=== PATIENT | female | born 1960 | race Caucasian/White ===

== ENCOUNTER 2016-04-07 13:56 | Emergency (ER) | payer OTHER ==
[2016-04-07 15:01] LABS: BASO % 0.6 % (0.0-1.0); EOS # 0.1 K/mm3 (0.0-0.50); EOS % 1.1 % (0.0-3.0); LARGE UNSTAINED CELL # 0.2 K/mm3 (0.0-0.4); LARGE UNSTAINED CELL % 1.7 % (0.0-4.0); LYMPH # 2.3 K/mm3 (1.5-4.5); LYMPH % 26.8 % (24.0-44.0); MEAN CORPUSCULAR HEMOGLOBIN 30.9 pg (27.0-33.0); MEAN CORPUSCULAR HGB CONC 33.5 g/dl (32.0-36.5); MEAN CORPUSCULAR VOLUME 92.3 fl (80.0-96.0); MONO # 0.4 K/mm3 (0.0-0.8); MONO % 4.3 % (0.0-5.0); NEUTROPHILS # 5.5 K/mm3 (1.8-7.7); NEUTROPHILS % 65.4 % (36.0-66.0); PLATELET COUNT, AUTOMATED 293 k/mm3 (150-450); RED CELL DISTRIBUTION WIDTH 12.4 % (11.5-14.5); WHITE BLOOD COUNT 8.5 K/mm3 (4.0-10.0)
--- NOTE | 2016-04-07 15:06 | REP ---
Chest one-view HISTORY: Shortness of breath Comparison: None The lungs are clear. The heart is normal in size. The pulmonary vasculature is normal in appearance. Impression: No acute disease. Signed by Gatito Diaz MD 04/07/2016 02:58 P
[2016-04-07 15:15] LABS: ANION GAP 10 MEQ/L (8-16); BLOOD UREA NITROGEN 18 MG/DL (7-18); CALCIUM LEVEL 9.1 MG/DL (8.5-10.1); CARBON DIOXIDE LEVEL 26 MEQ/L (21-32); CHLORIDE LEVEL 106 MEQ/L (98-107); GLOMERULAR FILTRATION RATE > 60.0 (>51); GLUCOSE, FASTING 121 MG/DL (70-105); POTASSIUM SERUM 4.1 MEQ/L (3.5-5.1); SODIUM LEVEL 142 MEQ/L (136-145)
[2016-04-07] MEDS ORDERED: ONDANSETRON 4MG/2ML VIAL (J2405) As Ordered ONE (16:21)
[2016-04-07] MEDS ORDERED: KETOROLAC 30 MG/ML VIAL (J1885) As Ordered ONE (16:21)
--- NOTE | 2016-04-07 18:01 | EDDOCDS ---
Physician Documentation [facility] Name: Charito Carnes Age: 56 yrs Sex: Female : 1960 Arrival Date: 04/07/2016 Time: 13:56 Bed 9 Private MD: Ilya DIAZ Disposition: 04/07/16 16:57 Discharged to Home/Self Care. Impression: Dizziness and giddiness. - Condition is Stable. - Discharge Instructions: Near-Syncope, [id number]. - Medication Reconciliation, Local Pharmacy Hours form. - Follow up: [facility] [place]; When: Call to arrange an appointment; Reason: Continuance of care. - Problem is new. - Symptoms have improved. Historical: - Allergies: no known allergies; - Home Meds: 1. none - PMHx: none; - PSHx: Hysterectomy; Appendectomy; - Social history: Smoking status: Patient states was never smoker of tobacco. Patient/guardian denies using alcohol, street drugs, No barriers to communication noted, The patient speaks fluent Tristanian, Speaks appropriately for age. - Family history: Not pertinent. - : The pt / caregiver states he / she is not on anticoagulants. Home medication list is obtained from the patient. - Exposure Risk Screening:: None identified. Vital Signs: 04/07 13:47 Pulse 78 MON; Pulse Ox 89% ; ja5 13:48 BP 121 / 56 (auto/); ja5 13:58 BP 153 / 96; Pulse 84; Resp 18 S; Temp 97.5(O); Pulse Ox 100% on R/A; Weight 70.76 kg / gr2 156 lbs (R); Height 5 ft. 2 in. (157.48 cm) (R); Pain 3/10; 14:02 Pulse 84 MON; Pulse Ox 90% ; ja5 14:03 BP 144 / 65 (auto/); ja5 14:17 Pulse 80 MON; Pulse Ox 89% ; ja5 14:18 BP 131 / 60 (auto/); ja5 14:18 BP 177 / 121 (auto/); ja5 14:18 Pulse 82 MON; Pulse Ox 99% ; ja5 14:23 BP 161 / 94 (auto/); ja5 14:23 Pulse 76 MON; Pulse Ox 96% ; ja5 14:29 Pulse 76 MON; Pulse Ox 98% ; ja5 14:30 BP 156 / 97 (auto/); ja5 14:32 Pulse 86 MON; Pulse Ox 91% ; ja5 14:33 BP 127 / 60 (auto/); ja5 14:47 Pulse 80 MON; Pulse Ox 89% ; ja5 14:48 BP 133 / 62 (auto/); ja5 14:59 Pulse 72 MON; Pulse Ox 96% ; ja5 15:00 BP 185 / 105 (auto/); ja5 15:02 Pulse 80 MON; Pulse Ox 89% ; ja5 15:03 BP 134 / 63 (auto/); ja5 15:15 BP 185 / 99 (auto/); ja5 15:15 Pulse 74 MON; Pulse Ox 98% ; ja5 15:17 Pulse 80 MON; Pulse Ox 89% ; ja5 15:18 BP 133 / 63 (auto/); ja5 15:30 BP 159 / 83 (auto/); ja5 15:30 Pulse 74 MON; Pulse Ox 96% ; ja5 15:44 Pulse 76 MON; Pulse Ox 98% ; ja5 15:45 BP 189 / 119 (auto/); ja5 16:00 BP 162 / 92 (auto/); ja5 16:00 Pulse 74 MON; Pulse Ox 96% ; ja5 16:14 Pulse 70 MON; Pulse Ox 97% ; ja5 16:14 BP 160 / 89; Pulse 69; Resp 16; Temp 96.4(O); Pulse Ox 98% on R/A; Pain 0/10; ja5 16:15 BP 163 / 95 (auto/); ja5 16:25 BP 164 / 98 LA Supine; Pulse 70; jc4 16:25 BP 172 / 101 LA Sitting; Pulse 73; jc4 16:27 BP 161 / 99 Standing; Pulse 73; jc4 16:28 BP 164 / 98 Supine; Pulse 70; ja5 16:28 BP 172 / 104 Sitting; Pulse 73; ja5 16:28 BP 161 / 99 Standing; Pulse 73; ja5 16:29 Pulse 70 MON; Pulse Ox 98% ; ja5 16:30 BP 155 / 108 (auto/); ja5 16:44 Pulse 70 MON; Pulse Ox 97% ; ja5 16:45 BP 174 / 111 (auto/); ja5 16:59 Pulse 68 MON; Pulse Ox 94% ; ja5 17:00 BP 187 / 121 (auto/); ja5 17:12 BP 122 / 82 RA (man/); jc4 17:46 Pulse 70 MON; Pulse Ox 97% ; ja5 17:47 BP 160 / 89 (auto/); ja5 13:58 Body Mass Index 28.53 (70.76 kg, 157.48 cm) gr2 MDM: 14:02 ECG WITH READING ER PHYS+CARDIAG ordered. EDMS 14:32 Ethnic Origins Teacher/Pulse Ox/q 15 min VS ordered. fg 14:32 IV Saline Lock ordered. fg 14:32 Rhythm Strip to chart ordered. fg 14:33 -Blood Culture Ordered. EDMS 14:33 B-Type Natiuretic Peptide Ordered. EDMS 14:33 Basic Metabolic Profile Ordered. EDMS 14:33 CBC with Diff Ordered. EDMS 14:35 Chest, 1 View Ordered. EDMS 15:36 Oxygen at 4L/Min NC or Home dosage ordered. ja5 15:54 ketorolac 30 mg IVP once ordered. fg 15:54 Ondansetron 4 mg IVP once ordered. fg 15:58 Orthostatic VS ordered. fg 17:16 Financial registration complete. zo 17:16 [facility] [place] Agreement was scanned into [employer] and attached to record. zo Administered Medications: 16:29 Drug: Ondansetron 4 mg [ondansetron HCl 2 mg/mL intravenous solution (2 mL)] Route: jc4 IVP; Site: left antecubital; 16:32 Drug: ketorolac 30 mg [ketorolac 30 mg/mL (1 mL) injection solution (1 mL)] Route: IVP; jc4 Site: left antecubital; Signatures: Dispatcher MedHost EDMS Pal [place] Teresa RN RN ttb Radha Burks MD MD fg Anderson, Jessica, RN RN ja5 Nitza Roman RN jc4 The chart was reviewed and I authenticate all verbal orders and agree with the evaluation and treatment provided.Corrections: (The following items were deleted from the chart) 15:33 14:32 Oxygen at 4L/Min NC or Home dosage ordered. fg ja5 Attachments: 17:16 [facility] Payment Agreement zo MTDD
--- NOTE | 2016-04-07 18:01 | EDDOCDS ---
Nurse's Notes [facility] Name: Charito Carnes Age: 56 yrs Sex: Female : 1960 Arrival Date: 04/07/2016 Time: 13:56 Bed 9 Private MD: Ilya DIAZ Diagnosis: Dizziness and giddiness Presentation: 04/07 14:10 Presenting complaint: Patient states: pt saw spots and had visual changes around 1200 ttb today. States she was short of breath and shaky . Resolved. Adult Sepsis Screening: The patient does not have new or worsening altered mentation. Patient's respiratory rate is less than 22. Systolic blood pressure is greater than 100. Patient has a qSOFA score of 0- Negative Sepsis Screen. Suicide/Homicide risk assessment- the patient denies having any suicidal and/or homicidal ideations and does not present with any other emotional, behavioral or mental health complaints. Status: The patient is a dependent. Transition of care: patient was not received from another setting of care. 14:10 Acuity: KAREN Level 3 ttb 14:10 Method Of Arrival: Walkin/Carried/Asstd ttb Triage Assessment: 14:00 Respiratory: Onset: The symptoms/episode began/occurred today. ja5 14:12 General: Appears in no apparent distress, well nourished, well groomed, Behavior is ttb appropriate for age, cooperative, pleasant. Pain: Denies pain. HIV screening NA for this visit Offered previously. Cardiovascular: Chest pain is denied. Respiratory: Airway is patent Respiratory effort is even, unlabored. Derm: Skin is normal. Historical: - Allergies: no known allergies; - Home Meds: 1. none - PMHx: none; - PSHx: Hysterectomy; Appendectomy; - Social history: Smoking status: Patient states was never smoker of tobacco. Patient/guardian denies using alcohol, street drugs, No barriers to communication noted, The patient speaks fluent Greenlandic, Speaks appropriately for age. - Family history: Not pertinent. - : The pt / caregiver states he / she is not on anticoagulants. Home medication list is obtained from the patient. - Exposure Risk Screening:: None identified. Screenin:28 Screening information is obtained from the patient. Fall risk: No risks identified. ja5 Assistance ADL's: requires no assistance with activities of daily living. Abuse/DV Screen: The patient / caregiver reports he/she is: not in a situation that causes fear, pain or injury. Nutritional screening: On no prescribed diet. Advance Directives: Currently, there is no health care proxy. There is no active DNR order. There is no living will. There is no Power of Supervisor [place]. home support is adequate. Assessment: 14:24 General: Appears in no apparent distress, Behavior is appropriate for age, cooperative. ja5 Pain:. Neurological: Level of Consciousness is awake, alert, Oriented to person, place, time. Cardiovascular: Capillary refill < 3 seconds Heart tones S1 S2 present Rhythm is sinus rhythm No ectopy. Chest pain is described as Pain is 1 out of 10 on a pain scale. Chest pain began 2 hours ago. Respiratory: Airway is patent Respiratory effort is even, unlabored, Respiratory pattern is regular, symmetrical, Breath sounds are clear bilaterally. Derm: Skin is pink, warm & dry. 16:02 General: Patient is sitting up in stretcher with at bedside. Respirations are ja5 even and unlabored, O2 sats 98% on RA. Patient denies chest pain, visual disturbances or dizziness at this time. SR with no ectopy on cardiac cath tech. Bed in low position, call rachel in reach. . 17:56 General: Appears in no apparent distress, Behavior is appropriate for age, cooperative. ja5 Pain: Denies pain. Neurological: Level of Consciousness is awake, alert, Oriented to person, place, time. Cardiovascular: Rhythm is sinus rhythm No ectopy. Chest pain is denied. Respiratory: Airway is patent Respiratory effort is even, unlabored, Respiratory pattern is regular, symmetrical. Derm: Skin is pink, warm & dry. Vital Signs: 13:47 Pulse 78 MON; Pulse Ox 89% ; ja5 13:48 BP 121 / 56 (auto/); ja5 13:58 BP 153 / 96; Pulse 84; Resp 18 S; Temp 97.5(O); Pulse Ox 100% on R/A; Weight 70.76 kg gr2 (R); Height 5 ft. 2 in. (157.48 cm) (R); Pain 3/10; 14:02 Pulse 84 MON; Pulse Ox 90% ; ja5 14:03 BP 144 / 65 (auto/); ja5 14:17 Pulse 80 MON; Pulse Ox 89% ; ja5 14:18 BP 131 / 60 (auto/); ja5 14:18 BP 177 / 121 (auto/); ja5 14:18 Pulse 82 MON; Pulse Ox 99% ; ja5 14:23 BP 161 / 94 (auto/); ja5 14:23 Pulse 76 MON; Pulse Ox 96% ; ja5 14:29 Pulse 76 MON; Pulse Ox 98% ; ja5 14:30 BP 156 / 97 (auto/); ja5 14:32 Pulse 86 MON; Pulse Ox 91% ; ja5 14:33 BP 127 / 60 (auto/); ja5 14:47 Pulse 80 MON; Pulse Ox 89% ; ja5 14:48 BP 133 / 62 (auto/); ja5 14:59 Pulse 72 MON; Pulse Ox 96% ; ja5 15:00 BP 185 / 105 (auto/); ja5 15:02 Pulse 80 MON; Pulse Ox 89% ; ja5 15:03 BP 134 / 63 (auto/); ja5 15:15 BP 185 / 99 (auto/); ja5 15:15 Pulse 74 MON; Pulse Ox 98% ; ja5 15:17 Pulse 80 MON; Pulse Ox 89% ; ja5 15:18 BP 133 / 63 (auto/); ja5 15:30 BP 159 / 83 (auto/); ja5 15:30 Pulse 74 MON; Pulse Ox 96% ; ja5 15:44 Pulse 76 MON; Pulse Ox 98% ; ja5 15:45 BP 189 / 119 (auto/); ja5 16:00 BP 162 / 92 (auto/); ja5 16:00 Pulse 74 MON; Pulse Ox 96% ; ja5 16:14 Pulse 70 MON; Pulse Ox 97% ; ja5 16:14 BP 160 / 89; Pulse 69; Resp 16; Temp 96.4(O); Pulse Ox 98% on R/A; Pain 0/10; ja5 16:15 BP 163 / 95 (auto/); ja5 16:25 BP 164 / 98 LA Supine; Pulse 70; jc4 16:25 BP 172 / 101 LA Sitting; Pulse 73; jc4 16:27 BP 161 / 99 Standing; Pulse 73; jc4 16:28 BP 164 / 98 Supine; Pulse 70; ja5 16:28 BP 172 / 104 Sitting; Pulse 73; ja5 16:28 BP 161 / 99 Standing; Pulse 73; ja5 16:29 Pulse 70 MON; Pulse Ox 98% ; ja5 16:30 BP 155 / 108 (auto/); ja5 16:44 Pulse 70 MON; Pulse Ox 97% ; ja5 16:45 BP 174 / 111 (auto/); ja5 16:59 Pulse 68 MON; Pulse Ox 94% ; ja5 17:00 BP 187 / 121 (auto/); ja5 17:12 BP 122 / 82 RA (man/); jc4 17:46 Pulse 70 MON; Pulse Ox 97% ; ja5 17:47 BP 160 / 89 (auto/); ja5 13:58 Body Mass Index 28.53 (70.76 kg, 157.48 cm) gr2 Vitals: 13:58 Log In Time: April 07, 2016 at 13:58. RN notified that patient meets Red Flag gr2 criteria. ED Course: 13:58 Patient visited by Michelle Rushing. gr2 13:58 [facility] is Private Physician. gr2 13:58 Patient moved to Waiting gr2 14:00 The patient / caregiver is instructed regarding the plan of care and ED course. ja5 14:01 Patient visited by Michelle Rushing. gr2 14:05 Nimco Ashraf,RN is Primary Nurse. ttb 14:05 Nitza Roman, RN is Primary Nurse. ttb 14:05 Patient moved to 9 ttb 14:11 Triage Initiated ttb 14:13 Patient visited by Erin Paiz, CARLOS. ttb 14:17 Accompanied by Family Member, Patient has correct armband on for positive ct3 identification. Placed in gown. Bed in low position. Call light in reach. Side rails up X 1. air sampling and monitoring on. Pulse ox on. NIBP on. 14:17 EKG done. (by ED staff). Reviewed by Radha Burks MD. ct3 14:18 Patient visited by Leida Pinto PCA. ct3 14:32 Radha Burks MD is Attending Physician. fg 14:49 CBC with Diff Sent. ja5 14:49 Basic Metabolic Profile Sent. ja5 14:49 B-Type Natiuretic Peptide Sent. ja5 14:50 -Blood Culture Sent. ja5 14:50 Inserted saline lock: 20 gauge in left antecubital area. ja5 15:09 Patient visited by Leida Pinto PCA. ct3 15:20 Chest, 1 View Returned. EDMS 15:36 Patient visited by Nimco Ashraf RN. ja5 15:42 Patient visited by Radha Burks MD. fg 16:28 Patient visited by iNmco Ashraf RN. ja5 16:56 [facility] is Referral Physician. fg 17:16 [facility] [place] Payment Agreement was scanned into [employer] and attached to record. zo 17:58 No procedures done that require assistance. ja5 Administered Medications: 16:29 Drug: Ondansetron 4 mg [ondansetron HCl 2 mg/mL intravenous solution (2 mL)] Route: jc4 IVP; Site: left antecubital; 16:32 Drug: ketorolac 30 mg [ketorolac 30 mg/mL (1 mL) injection solution (1 mL)] Route: IVP; jc4 Site: left antecubital; Order Results: Lab Order: B-Type Natiuretic Peptide; SPEC'M 04/07/16 14:46 Test: BRAIN NATRIURETIC PEPTIDE; Value: 5.3; Range: <100; Units: PG/ML; Status: F Lab Order: Basic Metabolic Profile; SPEC'M 04/07/16 14:46 Test: GLUCOSE, FASTING; Value: 121; Range: 70-105; Abnormal: Above high normal; Units: MG/DL; Status: F Test: BLOOD UREA NITROGEN; Value: 18; Range: 7-18; Units: MG/DL; Status: F Test: CREATININE FOR GFR; Value: 0.90; Range: 0.55-1.02; Units: MG/DL; Status: F Test: GLOMERULAR FILTRATION RATE; Value: > 60.0; Range: >51; Status: F Test: SODIUM LEVEL; Value: 142; Range: 136-145; Units: MEQ/L; Status: F Test: POTASSIUM SERUM; Value: 4.1; Range: 3.5-5.1; Units: MEQ/L; Status: F Test: CHLORIDE LEVEL; Value: 106; Range: 98-107; Units: MEQ/L; Status: F Test: CARBON DIOXIDE LEVEL; Value: 26; Range: 21-32; Units: MEQ/L; Status: F Test: ANION GAP; Value: 10; Range: 8-16; Units: MEQ/L; Status: F Test: CALCIUM LEVEL; Value: 9.1; Range: 8.5-10.1; Units: MG/DL; Status: F Test Note: ; Units are mL/min/1.73 m2 Chronic Kidney Disease Staging per NKF: Stage I & II GFR >=60 Normal to Mildly Decreased Stage III GFR 30-59 Moderately Decreased Stage IV GFR 15-29 Severely Decreased Stage V GFR <15 Very Little GFR Left ESRD GFR <15 on SIGHT MOUNTER Lab Order: CBC with Diff; SPEC'M 04/07/16 14:46 Test: WHITE BLOOD COUNT; Value: 8.5; Range: 4.0-10.0; Units: K/mm3; Status: F Test: RED BLOOD COUNT; Value: 4.42; Range: 4.00-5.40; Units: M/mm3; Status: F Test: HEMOGLOBIN; Value: 13.7; Range: 12.0-16.0; Units: g/dl; Status: F Test: HEMATOCRIT; Value: 40.8; Range: 36.0-47.0; Units: %; Status: F Test: MEAN CORPUSCULAR VOLUME; Value: 92.3; Range: 80.0-96.0; Units: fl; Status: F Test: MEAN CORPUSCULAR HEMOGLOBIN; Value: 30.9; Range: 27.0-33.0; Units: pg; Status: F Test: MEAN CORPUSCULAR HGB CONC; Value: 33.5; Range: 32.0-36.5; Units: g/dl; Status: F Test: RED CELL DISTRIBUTION WIDTH; Value: 12.4; Range: 11.5-14.5; Units: %; Status: F Test: PLATELET COUNT, AUTOMATED; Value: 293; Range: 150-450; Units: k/mm3; Status: F Test: NEUTROPHILS %; Value: 65.4; Range: 36.0-66.0; Units: %; Status: F Test: LYMPH %; Value: 26.8; Range: 24.0-44.0; Units: %; Status: F Test: MONO %; Value: 4.3; Range: 0.0-5.0; Units: %; Status: F Test: EOS %; Value: 1.1; Range: 0.0-3.0; Units: %; Status: F Test: BASO %; Value: 0.6; Range: 0.0-1.0; Units: %; Status: F Test: LARGE UNSTAINED CELL %; Value: 1.7; Range: 0.0-4.0; Units: %; Status: F Test: NEUTROPHILS #; Value: 5.5; Range: 1.8-7.7; Units: K/mm3; Status: F Test: LYMPH #; Value: 2.3; Range: 1.5-4.5; Units: K/mm3; Status: F Test: MONO #; Value: 0.4; Range: 0.0-0.8; Units: K/mm3; Status: F Test: EOS #; Value: 0.1; Range: 0.0-0.50; Units: K/mm3; Status: F Test: BASO #; Value: 0.0; Range: 0.0-0.2; Units: K/mm3; Status: F Test: LARGE UNSTAINED CELL #; Value: 0.2; Range: 0.0-0.4; Units: K/mm3; Status: F Radiology Order: Chest, 1 View Test: Chest, 1 View REASON FOR EXAMINATION: Shortness of Breath; Chest one-view; ; HISTORY: Shortness of breath; ; Comparison: None; ; The lungs are clear. The heart is normal in size. The pulmonary vasculature is; normal in appearance.; ; Impression: No acute disease.; ; ; Signed by; Gatito Diaz MD 04/07/2016 02:58 P; Outcome: 16:57 Discharge ordered by Provider. fg 17:58 Discharge Assessment: Patient awake, alert and oriented x 3. No cognitive and/or ja5 functional deficits noted. Patient verbalized understanding of disposition instructions. patient administered narcotics - no. The following High Risk Discharge criteria are identified: None. Discharged to home ambulatory, with significant other. Condition: stable. Instructed on discharge instructions, follow up and referral plans. Demonstrated understanding of instructions. No special radiology studies were completed. Property :Personal belongings accompany Pt. 18:00 Patient left the ED. ja5 Signatures: Dispatcher MedHost EDMS Pal Mills Jennifer RN RN jc4 Leida Pinto PCA SWITCH ADJUSTER ct3 Erin Paiz, RN RN ttb Сергей Michelle gr2 Radha Burks MD MD fg Anderson, Jessica, RN RN [email or web address] Corrections: (The following items were deleted from the chart) 15:46 15:39 General: Patient is laying comfortably in stretcher with at bedside. She ja5 has no chest pain or dizziness at this time. Respirations are even and unlabored, O2 sat 98% on RA, SR on cardiac cath tech. Bed in low position, call rachel in reach.. ja5 15:54 15:42 General: Patient ambulated in gonzalez with continuous pulse oximeter. O2 sats were ja5 93% on RA to start and dropped to 89% before going back to the stretcher. Patient was placed on 3L O2 NC which is what she uses at home at night time. Patient is out of breath after ambulating with a RR or 28 bpm. O2 sat increased to 96% on 3L O2 NC. Provider notified of results.. diego MTDD
--- NOTE | 2016-04-07 19:58 | ECGEPIP ---
Stationary ECG Study [facility] - ED Test Date: 2016-04-07 Pat Name: HOSEA WALLACE Department: Room: - Gender: F [employer] Core Layer: ct : 1960 Requested By: CURTIS Johnson Order Number: [id number] Reading MD: Melva Loving Measurements Intervals [place] Rate: 75 P: 35 ME: 172 QRS: 9 QRSD: 87 T: 12 QT: 375 QTc: 419 Interpretive Statements SINUS RHYTHM NO PRIOR FOR COMPARISON Electronically Signed On 04-07-2016 19:58:21 EST by Melva Loving
--- NOTE | 2016-04-09 19:01 | EDDOCDS ---
Physician Documentation [facility] Name: Charito Carnes Age: 56 yrs Sex: Female : 1960 Arrival Date: 04/07/2016 Time: 13:56 Bed 9 Private MD: Ilya DIAZ Disposition: 04/07/16 16:57 Discharged to Home/Self Care. Impression: Dizziness and giddiness. - Condition is Stable. - Discharge Instructions: Near-Syncope, [id number]. - Medication Reconciliation, Local Pharmacy Hours form. - Follow up: [facility] [place]; When: Call to arrange an appointment; Reason: Continuance of care. - Problem is new. - Symptoms have improved. Historical: - Allergies: no known allergies; - Home Meds: 1. none - PMHx: none; - PSHx: Hysterectomy; Appendectomy; - Social history: Smoking status: Patient states was never smoker of tobacco. Patient/guardian denies using alcohol, street drugs, No barriers to communication noted, The patient speaks fluent Guinean, Speaks appropriately for age. - Family history: Not pertinent. - : The pt / caregiver states he / she is not on anticoagulants. Home medication list is obtained from the patient. - Exposure Risk Screening:: None identified. Vital Signs: 04/07 13:47 Pulse 78 MON; Pulse Ox 89% ; ja5 13:48 BP 121 / 56 (auto/); ja5 13:58 BP 153 / 96; Pulse 84; Resp 18 S; Temp 97.5(O); Pulse Ox 100% on R/A; Weight 70.76 kg / gr2 156 lbs (R); Height 5 ft. 2 in. (157.48 cm) (R); Pain 3/10; 14:02 Pulse 84 MON; Pulse Ox 90% ; ja5 14:03 BP 144 / 65 (auto/); ja5 14:17 Pulse 80 MON; Pulse Ox 89% ; ja5 14:18 BP 131 / 60 (auto/); ja5 14:18 BP 177 / 121 (auto/); ja5 14:18 Pulse 82 MON; Pulse Ox 99% ; ja5 14:23 BP 161 / 94 (auto/); ja5 14:23 Pulse 76 MON; Pulse Ox 96% ; ja5 14:29 Pulse 76 MON; Pulse Ox 98% ; ja5 14:30 BP 156 / 97 (auto/); ja5 14:32 Pulse 86 MON; Pulse Ox 91% ; ja5 14:33 BP 127 / 60 (auto/); ja5 14:47 Pulse 80 MON; Pulse Ox 89% ; ja5 14:48 BP 133 / 62 (auto/); ja5 14:59 Pulse 72 MON; Pulse Ox 96% ; ja5 15:00 BP 185 / 105 (auto/); ja5 15:02 Pulse 80 MON; Pulse Ox 89% ; ja5 15:03 BP 134 / 63 (auto/); ja5 15:15 BP 185 / 99 (auto/); ja5 15:15 Pulse 74 MON; Pulse Ox 98% ; ja5 15:17 Pulse 80 MON; Pulse Ox 89% ; ja5 15:18 BP 133 / 63 (auto/); ja5 15:30 BP 159 / 83 (auto/); ja5 15:30 Pulse 74 MON; Pulse Ox 96% ; ja5 15:44 Pulse 76 MON; Pulse Ox 98% ; ja5 15:45 BP 189 / 119 (auto/); ja5 16:00 BP 162 / 92 (auto/); ja5 16:00 Pulse 74 MON; Pulse Ox 96% ; ja5 16:14 Pulse 70 MON; Pulse Ox 97% ; ja5 16:14 BP 160 / 89; Pulse 69; Resp 16; Temp 96.4(O); Pulse Ox 98% on R/A; Pain 0/10; ja5 16:15 BP 163 / 95 (auto/); ja5 16:25 BP 164 / 98 LA Supine; Pulse 70; jc4 16:25 BP 172 / 101 LA Sitting; Pulse 73; jc4 16:27 BP 161 / 99 Standing; Pulse 73; jc4 16:28 BP 164 / 98 Supine; Pulse 70; ja5 16:28 BP 172 / 104 Sitting; Pulse 73; ja5 16:28 BP 161 / 99 Standing; Pulse 73; ja5 16:29 Pulse 70 MON; Pulse Ox 98% ; ja5 16:30 BP 155 / 108 (auto/); ja5 16:44 Pulse 70 MON; Pulse Ox 97% ; ja5 16:45 BP 174 / 111 (auto/); ja5 16:59 Pulse 68 MON; Pulse Ox 94% ; ja5 17:00 BP 187 / 121 (auto/); ja5 17:12 BP 122 / 82 RA (man/); jc4 17:46 Pulse 70 MON; Pulse Ox 97% ; ja5 17:47 BP 160 / 89 (auto/); ja5 13:58 Body Mass Index 28.53 (70.76 kg, 157.48 cm) gr2 MDM: 14:02 ECG WITH READING ER PHYS+CARDIAG ordered. EDMS 14:32 Farmworker Fur/Pulse Ox/q 15 min VS ordered. fg 14:32 IV Saline Lock ordered. fg 14:32 Rhythm Strip to chart ordered. fg 14:33 -Blood Culture Ordered. EDMS 14:33 B-Type Natiuretic Peptide Ordered. EDMS 14:33 Basic Metabolic Profile Ordered. EDMS 14:33 CBC with Diff Ordered. EDMS 14:35 Chest, 1 View Ordered. EDMS 15:36 Oxygen at 4L/Min NC or Home dosage ordered. ja5 15:54 ketorolac 30 mg IVP once ordered. fg 15:54 Ondansetron 4 mg IVP once ordered. fg 15:58 Orthostatic VS ordered. fg 17:16 Financial registration complete. zo 17:16 [place] [place] was scanned into [employer] for iPhone and Android and attached to record. zo 04/08 10:42 T-Sheet-- Draft Copy was scanned into Blink for iPhone and Android and attached to record. gb 10:42 ECG/EKG was scanned into Blink for iPhone and Android and attached to record. gb 10:43 Trend VS was scanned into Blink for iPhone and Android and attached to record. gb Administered Medications: 04/07 16:29 Drug: Ondansetron 4 mg [ondansetron HCl 2 mg/mL intravenous solution (2 mL)] Route: jc4 IVP; Site: left antecubital; 16:32 Drug: ketorolac 30 mg [ketorolac 30 mg/mL (1 mL) injection solution (1 mL)] Route: IVP; jc4 Site: left antecubital; Signatures: Dispatcher MedHost EDMS Rin Sales, Reg Reg Pal Poole Teresa RN RN Radha Siddiqi MD MD fg Anderson, Jessica, RN RN ja5 Nitza Roman RN jc4 The chart was reviewed and I authenticate all verbal orders and agree with the evaluation and treatment provided.Corrections: (The following items were deleted from the chart) 15:33 14:32 Oxygen at 4L/Min NC or Home dosage ordered. fg ja5 Attachments: 17:16 [facility] Payment Agreement zo 04/08 10:42 T-Sheet-- Draft Copy gb 10:42 ECG/EKG gb Chart Complete MTDD
--- NOTE | 2016-04-09 19:01 | EDDOCDS ---
Nurse's Notes [facility] Name: Hosea Wallace Age: 56 yrs Sex: Female : 1960 Arrival Date: 04/07/2016 Time: 13:56 Bed 9 Private MD: Ilya DIAZ Diagnosis: Dizziness and giddiness Presentation: 04/07 14:10 Presenting complaint: Patient states: pt saw spots and had visual changes around 1200 ttb today. States she was short of breath and shaky . Resolved. Adult Sepsis Screening: The patient does not have new or worsening altered mentation. Patient's respiratory rate is less than 22. Systolic blood pressure is greater than 100. Patient has a qSOFA score of 0- Negative Sepsis Screen. Suicide/Homicide risk assessment- the patient denies having any suicidal and/or homicidal ideations and does not present with any other emotional, behavioral or mental health complaints. Status: The patient is a dependent. Transition of care: patient was not received from another setting of care. 14:10 Acuity: KAREN Level 3 ttb 14:10 Method Of Arrival: Walkin/Carried/Asstd ttb Triage Assessment: 14:00 Respiratory: Onset: The symptoms/episode began/occurred today. ja5 14:12 General: Appears in no apparent distress, well nourished, well groomed, Behavior is ttb appropriate for age, cooperative, pleasant. Pain: Denies pain. HIV screening NA for this visit Offered previously. Cardiovascular: Chest pain is denied. Respiratory: Airway is patent Respiratory effort is even, unlabored. Derm: Skin is normal. Historical: - Allergies: no known allergies; - Home Meds: 1. none - PMHx: none; - PSHx: Hysterectomy; Appendectomy; - Social history: Smoking status: Patient states was never smoker of tobacco. Patient/guardian denies using alcohol, street drugs, No barriers to communication noted, The patient speaks fluent Tajik, Speaks appropriately for age. - Family history: Not pertinent. - : The pt / caregiver states he / she is not on anticoagulants. Home medication list is obtained from the patient. - Exposure Risk Screening:: None identified. Screenin:28 Screening information is obtained from the patient. Fall risk: No risks identified. ja5 Assistance ADL's: requires no assistance with activities of daily living. Abuse/DV Screen: The patient / caregiver reports he/she is: not in a situation that causes fear, pain or injury. Nutritional screening: On no prescribed diet. Advance Directives: Currently, there is no health care proxy. There is no active DNR order. There is no living will. There is no Power of Stand Grinder. home support is adequate. Assessment: 14:24 General: Appears in no apparent distress, Behavior is appropriate for age, cooperative. ja5 Pain:. Neurological: Level of Consciousness is awake, alert, Oriented to person, place, time. Cardiovascular: Capillary refill < 3 seconds Heart tones S1 S2 present Rhythm is sinus rhythm No ectopy. Chest pain is described as Pain is 1 out of 10 on a pain scale. Chest pain began 2 hours ago. Respiratory: Airway is patent Respiratory effort is even, unlabored, Respiratory pattern is regular, symmetrical, Breath sounds are clear bilaterally. Derm: Skin is pink, warm & dry. 16:02 General: Patient is sitting up in stretcher with at bedside. Respirations are ja5 even and unlabored, O2 sats 98% on RA. Patient denies chest pain, visual disturbances or dizziness at this time. SR with no ectopy on secured entrance monitor. Bed in low position, call rachel in reach. . 17:56 General: Appears in no apparent distress, Behavior is appropriate for age, cooperative. ja5 Pain: Denies pain. Neurological: Level of Consciousness is awake, alert, Oriented to person, place, time. Cardiovascular: Rhythm is sinus rhythm No ectopy. Chest pain is denied. Respiratory: Airway is patent Respiratory effort is even, unlabored, Respiratory pattern is regular, symmetrical. Derm: Skin is pink, warm & dry. Vital Signs: 13:47 Pulse 78 MON; Pulse Ox 89% ; ja5 13:48 BP 121 / 56 (auto/); ja5 13:58 BP 153 / 96; Pulse 84; Resp 18 S; Temp 97.5(O); Pulse Ox 100% on R/A; Weight 70.76 kg gr2 (R); Height 5 ft. 2 in. (157.48 cm) (R); Pain 3/10; 14:02 Pulse 84 MON; Pulse Ox 90% ; ja5 14:03 BP 144 / 65 (auto/); ja5 14:17 Pulse 80 MON; Pulse Ox 89% ; ja5 14:18 BP 131 / 60 (auto/); ja5 14:18 BP 177 / 121 (auto/); ja5 14:18 Pulse 82 MON; Pulse Ox 99% ; ja5 14:23 BP 161 / 94 (auto/); ja5 14:23 Pulse 76 MON; Pulse Ox 96% ; ja5 14:29 Pulse 76 MON; Pulse Ox 98% ; ja5 14:30 BP 156 / 97 (auto/); ja5 14:32 Pulse 86 MON; Pulse Ox 91% ; ja5 14:33 BP 127 / 60 (auto/); ja5 14:47 Pulse 80 MON; Pulse Ox 89% ; ja5 14:48 BP 133 / 62 (auto/); ja5 14:59 Pulse 72 MON; Pulse Ox 96% ; ja5 15:00 BP 185 / 105 (auto/); ja5 15:02 Pulse 80 MON; Pulse Ox 89% ; ja5 15:03 BP 134 / 63 (auto/); ja5 15:15 BP 185 / 99 (auto/); ja5 15:15 Pulse 74 MON; Pulse Ox 98% ; ja5 15:17 Pulse 80 MON; Pulse Ox 89% ; ja5 15:18 BP 133 / 63 (auto/); ja5 15:30 BP 159 / 83 (auto/); ja5 15:30 Pulse 74 MON; Pulse Ox 96% ; ja5 15:44 Pulse 76 MON; Pulse Ox 98% ; ja5 15:45 BP 189 / 119 (auto/); ja5 16:00 BP 162 / 92 (auto/); ja5 16:00 Pulse 74 MON; Pulse Ox 96% ; ja5 16:14 Pulse 70 MON; Pulse Ox 97% ; ja5 16:14 BP 160 / 89; Pulse 69; Resp 16; Temp 96.4(O); Pulse Ox 98% on R/A; Pain 0/10; ja5 16:15 BP 163 / 95 (auto/); ja5 16:25 BP 164 / 98 LA Supine; Pulse 70; jc4 16:25 BP 172 / 101 LA Sitting; Pulse 73; jc4 16:27 BP 161 / 99 Standing; Pulse 73; jc4 16:28 BP 164 / 98 Supine; Pulse 70; ja5 16:28 BP 172 / 104 Sitting; Pulse 73; ja5 16:28 BP 161 / 99 Standing; Pulse 73; ja5 16:29 Pulse 70 MON; Pulse Ox 98% ; ja5 16:30 BP 155 / 108 (auto/); ja5 16:44 Pulse 70 MON; Pulse Ox 97% ; ja5 16:45 BP 174 / 111 (auto/); ja5 16:59 Pulse 68 MON; Pulse Ox 94% ; ja5 17:00 BP 187 / 121 (auto/); ja5 17:12 BP 122 / 82 RA (man/); jc4 17:46 Pulse 70 MON; Pulse Ox 97% ; ja5 17:47 BP 160 / 89 (auto/); ja5 13:58 Body Mass Index 28.53 (70.76 kg, 157.48 cm) gr2 Vitals: 13:58 Log In Time: April 07, 2016 at 13:58. RN notified that patient meets Red Flag gr2 criteria. ED Course: 13:58 Patient visited by Michelle Rushing. gr2 13:58 Caraballo [facility] is Private Physician. gr2 13:58 Patient moved to Waiting gr2 14:00 The patient / caregiver is instructed regarding the plan of care and ED course. ja5 14:01 Patient visited by Michelle Rushing. gr2 14:05 Nimco Ashraf,RN is Primary Nurse. ttb 14:05 Nitza Roman, RN is Primary Nurse. ttb 14:05 Patient moved to 9 ttb 14:11 Triage Initiated ttb 14:13 Patient visited by Erin Paiz, CARLOS. ttb 14:17 Accompanied by Family Member, Patient has correct armband on for positive ct3 identification. Placed in gown. Bed in low position. Call light in reach. Side rails up X 1. air sampling and monitoring on. Pulse ox on. NIBP on. 14:17 EKG done. (by ED staff). Reviewed by Radha Burks MD. ct3 14:18 Patient visited by Leida Pinto PCA. ct3 14:32 Radha Burks MD is Attending Physician. fg 14:49 CBC with Diff Sent. ja5 14:49 Basic Metabolic Profile Sent. ja5 14:49 B-Type Natiuretic Peptide Sent. ja5 14:50 -Blood Culture Sent. ja5 14:50 Inserted saline lock: 20 gauge in left antecubital area. ja5 15:09 Patient visited by Leida Pinto PCA. ct3 15:20 Chest, 1 View Returned. EDMS 15:36 Patient visited by Nimco Ashraf,RN. ja5 15:42 Patient visited by Radha Burks MD. fg 16:28 Patient visited by Nimco Ashraf,CARLOS. ja5 16:56 Ilya [facility] is Referral Physician. fg 17:16 [place] Payment Agreement was scanned into [employer] and attached to record. zo 17:58 No procedures done that require assistance. ja5 20:03 EKG-ADULT Returned. EDMS 04/08 10:42 T-Sheet-- Draft Copy was scanned into [employer] and attached to record. gb 10:42 ECG/EKG was scanned into [employer] and attached to record. gb 10:43 Trend VS was scanned into [employer] and attached to record. gb Administered Medications: 04/07 16:29 Drug: Ondansetron 4 mg [ondansetron HCl 2 mg/mL intravenous solution (2 mL)] Route: jc4 IVP; Site: left antecubital; 16:32 Drug: ketorolac 30 mg [ketorolac 30 mg/mL (1 mL) injection solution (1 mL)] Route: IVP; jc4 Site: left antecubital; Attachments: 10:43 Trend VS gb Order Results: Lab Order: -Blood Culture; SPEC'M 04/07/16 14:46 Test: BLOOD CULTURE; Value: No growth after 24 hours . All specimens observed; Status: F Test: BLOOD CULTURE; Value: for 5 days. Results final at that time.; Status: F Test: BLOOD CULTURE; Value: No Growth after 48 hours. All Specimens observed; Status: F Test: BLOOD CULTURE; Value: for 7 days. Results final at that time.; Status: F Lab Order: B-Type Natiuretic Peptide; SPEC'M 04/07/16 14:46 Test: BRAIN NATRIURETIC PEPTIDE; Value: 5.3; Range: <100; Units: PG/ML; Status: F Lab Order: Basic Metabolic Profile; SPEC'M 04/07/16 14:46 Test: GLUCOSE, FASTING; Value: 121; Range: 70-105; Abnormal: Above high normal; Units: MG/DL; Status: F Test: BLOOD UREA NITROGEN; Value: 18; Range: 7-18; Units: MG/DL; Status: F Test: CREATININE FOR GFR; Value: 0.90; Range: 0.55-1.02; Units: MG/DL; Status: F Test: GLOMERULAR FILTRATION RATE; Value: > 60.0; Range: >51; Status: F Test: SODIUM LEVEL; Value: 142; Range: 136-145; Units: MEQ/L; Status: F Test: POTASSIUM SERUM; Value: 4.1; Range: 3.5-5.1; Units: MEQ/L; Status: F Test: CHLORIDE LEVEL; Value: 106; Range: 98-107; Units: MEQ/L; Status: F Test: CARBON DIOXIDE LEVEL; Value: 26; Range: 21-32; Units: MEQ/L; Status: F Test: ANION GAP; Value: 10; Range: 8-16; Units: MEQ/L; Status: F Test: CALCIUM LEVEL; Value: 9.1; Range: 8.5-10.1; Units: MG/DL; Status: F Test Note: ; Units are mL/min/1.73 m2 Chronic Kidney Disease Staging per NKF: Stage I & II GFR >=60 Normal to Mildly Decreased Stage III GFR 30-59 Moderately Decreased Stage IV GFR 15-29 Severely Decreased Stage V GFR <15 Very Little GFR Left ESRD GFR <15 on INDEPENDENT DISTRIBUTOR Lab Order: CBC with Diff; SPEC'M 04/07/16 14:46 Test: WHITE BLOOD COUNT; Value: 8.5; Range: 4.0-10.0; Units: K/mm3; Status: F Test: RED BLOOD COUNT; Value: 4.42; Range: 4.00-5.40; Units: M/mm3; Status: F Test: HEMOGLOBIN; Value: 13.7; Range: 12.0-16.0; Units: g/dl; Status: F Test: HEMATOCRIT; Value: 40.8; Range: 36.0-47.0; Units: %; Status: F Test: MEAN CORPUSCULAR VOLUME; Value: 92.3; Range: 80.0-96.0; Units: fl; Status: F Test: MEAN CORPUSCULAR HEMOGLOBIN; Value: 30.9; Range: 27.0-33.0; Units: pg; Status: F Test: MEAN CORPUSCULAR HGB CONC; Value: 33.5; Range: 32.0-36.5; Units: g/dl; Status: F Test: RED CELL DISTRIBUTION WIDTH; Value: 12.4; Range: 11.5-14.5; Units: %; Status: F Test: PLATELET COUNT, AUTOMATED; Value: 293; Range: 150-450; Units: k/mm3; Status: F Test: NEUTROPHILS %; Value: 65.4; Range: 36.0-66.0; Units: %; Status: F Test: LYMPH %; Value: 26.8; Range: 24.0-44.0; Units: %; Status: F Test: MONO %; Value: 4.3; Range: 0.0-5.0; Units: %; Status: F Test: EOS %; Value: 1.1; Range: 0.0-3.0; Units: %; Status: F Test: BASO %; Value: 0.6; Range: 0.0-1.0; Units: %; Status: F Test: LARGE UNSTAINED CELL %; Value: 1.7; Range: 0.0-4.0; Units: %; Status: F Test: NEUTROPHILS #; Value: 5.5; Range: 1.8-7.7; Units: K/mm3; Status: F Test: LYMPH #; Value: 2.3; Range: 1.5-4.5; Units: K/mm3; Status: F Test: MONO #; Value: 0.4; Range: 0.0-0.8; Units: K/mm3; Status: F Test: EOS #; Value: 0.1; Range: 0.0-0.50; Units: K/mm3; Status: F Test: BASO #; Value: 0.0; Range: 0.0-0.2; Units: K/mm3; Status: F Test: LARGE UNSTAINED CELL #; Value: 0.2; Range: 0.0-0.4; Units: K/mm3; Status: F Radiology Order: EKG-ADULT Test: EKG-ADULT REASON FOR EXAMINATION: Shortness of Breath; Stationary ECG Study; [facility] - ED; ; Test Date: 2016-04-07; Pat Name: HOSEA WALLACE Department:; Room: -; Gender: F Learning Disabilities Teacher: ct; : 1960 Requested By: RADHA Johnson; Order Number: [id number] Reading MD: Melva Loving; Measurements; Intervals [place]; Rate: 75 P: 35; WI: 172 QRS: 9; QRSD: 87 T: 12; QT: 375; QTc: 419; Interpretive Statements; SINUS RHYTHM; NO PRIOR FOR COMPARISON; Electronically Signed On 04-07-2016 19:58:21 EST by Melva Loving; Radiology Order: Chest, 1 View Test: Chest, 1 View REASON FOR EXAMINATION: Shortness of Breath; Chest one-view; ; HISTORY: Shortness of breath; ; Comparison: None; ; The lungs are clear. The heart is normal in size. The pulmonary vasculature is; normal in appearance.; ; Impression: No acute disease.; ; ; Signed by; Gatito Diaz MD 04/07/2016 02:58 P; Outcome: 04/07 16:57 Discharge ordered by Provider. fg 17:58 Discharge Assessment: Patient awake, alert and oriented x 3. No cognitive and/or ja5 functional deficits noted. Patient verbalized understanding of disposition instructions. patient administered narcotics - no. The following High Risk Discharge criteria are identified: None. Discharged to home ambulatory, with significant other. Condition: stable. Instructed on discharge instructions, follow up and referral plans. Demonstrated understanding of instructions. No special radiology studies were completed. Property :Personal belongings accompany Pt. 18:00 Patient left the ED. ja5 Signatures: Dispatcher [employer] EDMS Rin Sales, Pal Romero Jennifer RN RN jc4 Leida Pinto, NOEMI SHAREPOINT SPECIALIST ct3 Erin Paiz RN RN jaredb Michelle Rushing gr2 Radha Burks MD MD fg Anderson, JessicaRN RN [email or web address] Corrections: (The following items were deleted from the chart) 15:46 15:39 General: Patient is laying comfortably in stretcher with at bedside. She ja5 has no chest pain or dizziness at this time. Respirations are even and unlabored, O2 sat 98% on RA, SR on secured entrance monitor. Bed in low position, call rachel in reach.. ja5 15:54 15:42 General: Patient ambulated in gonzalez with continuous pulse oximeter. O2 sats were ja5 93% on RA to start and dropped to 89% before going back to the stretcher. Patient was placed on 3L O2 NC which is what she uses at home at night time. Patient is out of breath after ambulating with a RR or 28 bpm. O2 sat increased to 96% on 3L O2 NC. Provider notified of results.. ja5 Chart Complete MTDD
--- NOTE | 2016-04-09 19:01 | EDDOCDS ---
Physician Documentation [facility] Name: Charito Carnes Age: 56 yrs Sex: Female : 1960 Arrival Date: 04/07/2016 Time: 13:56 Bed 9 Private MD: Ilya DIAZ Disposition: 04/07/16 16:57 Discharged to Home/Self Care. Impression: Dizziness and giddiness. - Condition is Stable. - Discharge Instructions: Near-Syncope, Wsyk-he-Lrst. - Medication Reconciliation, Local Pharmacy Hours form. - Follow up: Carab[facility]; When: Call to arrange an appointment; Reason: Continuance of care. - Problem is new. - Symptoms have improved. Historical: - Allergies: no known allergies; - Home Meds: 1. none - PMHx: none; - PSHx: Hysterectomy; Appendectomy; - Social history: Smoking status: Patient states was never smoker of tobacco. Patient/guardian denies using alcohol, street drugs, No barriers to communication noted, The patient speaks fluent Pakistani, Speaks appropriately for age. - Family history: Not pertinent. - : The pt / caregiver states he / she is not on anticoagulants. Home medication list is obtained from the patient. - Exposure Risk Screening:: None identified. Vital Signs: 04/07 13:47 Pulse 78 MON; Pulse Ox 89% ; ja5 13:48 BP 121 / 56 (auto/); ja5 13:58 BP 153 / 96; Pulse 84; Resp 18 S; Temp 97.5(O); Pulse Ox 100% on R/A; Weight 70.76 kg / gr2 156 lbs (R); Height 5 ft. 2 in. (157.48 cm) (R); Pain 3/10; 14:02 Pulse 84 MON; Pulse Ox 90% ; ja5 14:03 BP 144 / 65 (auto/); ja5 14:17 Pulse 80 MON; Pulse Ox 89% ; ja5 14:18 BP 131 / 60 (auto/); ja5 14:18 BP 177 / 121 (auto/); ja5 14:18 Pulse 82 MON; Pulse Ox 99% ; ja5 14:23 BP 161 / 94 (auto/); ja5 14:23 Pulse 76 MON; Pulse Ox 96% ; ja5 14:29 Pulse 76 MON; Pulse Ox 98% ; ja5 14:30 BP 156 / 97 (auto/); ja5 14:32 Pulse 86 MON; Pulse Ox 91% ; ja5 14:33 BP 127 / 60 (auto/); ja5 14:47 Pulse 80 MON; Pulse Ox 89% ; ja5 14:48 BP 133 / 62 (auto/); ja5 14:59 Pulse 72 MON; Pulse Ox 96% ; ja5 15:00 BP 185 / 105 (auto/); ja5 15:02 Pulse 80 MON; Pulse Ox 89% ; ja5 15:03 BP 134 / 63 (auto/); ja5 15:15 BP 185 / 99 (auto/); ja5 15:15 Pulse 74 MON; Pulse Ox 98% ; ja5 15:17 Pulse 80 MON; Pulse Ox 89% ; ja5 15:18 BP 133 / 63 (auto/); ja5 15:30 BP 159 / 83 (auto/); ja5 15:30 Pulse 74 MON; Pulse Ox 96% ; ja5 15:44 Pulse 76 MON; Pulse Ox 98% ; ja5 15:45 BP 189 / 119 (auto/); ja5 16:00 BP 162 / 92 (auto/); ja5 16:00 Pulse 74 MON; Pulse Ox 96% ; ja5 16:14 Pulse 70 MON; Pulse Ox 97% ; ja5 16:14 BP 160 / 89; Pulse 69; Resp 16; Temp 96.4(O); Pulse Ox 98% on R/A; Pain 0/10; ja5 16:15 BP 163 / 95 (auto/); ja5 16:25 BP 164 / 98 LA Supine; Pulse 70; jc4 16:25 BP 172 / 101 LA Sitting; Pulse 73; jc4 16:27 BP 161 / 99 Standing; Pulse 73; jc4 16:28 BP 164 / 98 Supine; Pulse 70; ja5 16:28 BP 172 / 104 Sitting; Pulse 73; ja5 16:28 BP 161 / 99 Standing; Pulse 73; ja5 16:29 Pulse 70 MON; Pulse Ox 98% ; ja5 16:30 BP 155 / 108 (auto/); ja5 16:44 Pulse 70 MON; Pulse Ox 97% ; ja5 16:45 BP 174 / 111 (auto/); ja5 16:59 Pulse 68 MON; Pulse Ox 94% ; ja5 17:00 BP 187 / 121 (auto/); ja5 17:12 BP 122 / 82 RA (man/); jc4 17:46 Pulse 70 MON; Pulse Ox 97% ; ja5 17:47 BP 160 / 89 (auto/); ja5 13:58 Body Mass Index 28.53 (70.76 kg, 157.48 cm) gr2 MDM: 14:02 ECG WITH READING ER PHYS+CARDIAG ordered. EDMS 14:32 Speech Language Specialist/Pulse Ox/q 15 min VS ordered. fg 14:32 IV Saline Lock ordered. fg 14:32 Rhythm Strip to chart ordered. fg 14:33 -Blood Culture Ordered. EDMS 14:33 B-Type Natiuretic Peptide Ordered. EDMS 14:33 Basic Metabolic Profile Ordered. EDMS 14:33 CBC with Diff Ordered. EDMS 14:35 Chest, 1 View Ordered. EDMS 15:36 Oxygen at 4L/Min NC or Home dosage ordered. ja5 15:54 ketorolac 30 mg IVP once ordered. fg 15:54 Ondansetron 4 mg IVP once ordered. fg 15:58 Orthostatic VS ordered. fg 17:16 Financial registration complete. zo 17:16 [facility] [place] Agreement was scanned into [employer] and attached to record. zo 04/08 10:42 T-Sheet-- Draft Copy was scanned into [employer] and attached to record. gb 10:42 ECG/EKG was scanned into [employer] and attached to record. gb 10:43 Trend VS was scanned into [employer] and attached to record. gb Administered Medications: 04/07 16:29 Drug: Ondansetron 4 mg [ondansetron HCl 2 mg/mL intravenous solution (2 mL)] Route: jc4 IVP; Site: left antecubital; 16:32 Drug: ketorolac 30 mg [ketorolac 30 mg/mL (1 mL) injection solution (1 mL)] Route: IVP; jc4 Site: left antecubital; Signatures: Dispatcher [employer] EDMS Rin Sales, Reg Reg Pal Poole Teresa RN RN Radha Siddiqi MD MD fg Anderson, Jessica, RN RN ja5 Nitza Roman RN jc4 The chart was reviewed and I authenticate all verbal orders and agree with the evaluation and treatment provided.Corrections: (The following items were deleted from the chart) 15:33 14:32 Oxygen at 4L/Min NC or Home dosage ordered. fg ja5 Attachments: 17:16 [facility] Payment Agreement zo 04/08 10:42 T-Sheet-- Draft Copy gb 10:42 ECG/EKG gb Chart Complete MTDD
== END 2016-04-07 18:00 | disposition home or self-care (01) ==
LOC: M ED 13:56
DX: R42 Dizziness and giddiness (principal)
CPT/HCPCS: 71010; 80048; 83880; 85025; 87040; 93005; 93041; 96374; 96375; 99284; J1885; J2405

== ENCOUNTER → 2016-09-19 | Outpatient (CLI) | payer OTHER ==
--- NOTE | 2016-09-19 12:41 | REPMRS ---
Patient History The patient states she has not had a clinical breast exam in over a year. Family history of ovarian cancer in mother at age 47. Digital Mammo Screening Bilat: September 19, 2016 - Exam #: [id number] Bilateral CC and MLO view(s) were taken. Technologist: Nitza Bauman, Technologist FINDINGS: There are scattered fibroglandular densities. There is a mild amount of residual fibroglandular tissue which is fairly symmetric. There is no dominant mass, architectural distortion, or clustered microcalcification suggestive of malignancy. Scattered lymph nodes are seen in the right axilla. ASSESSMENT: BI-RADS/ACR category 2 mammogram. Benign finding(s). Recommendation Routine screening mammogram in 1 year (for women over age 40). This mammogram was interpreted with the aid of an FDA-approved computer-aided dectection system. A. Negative x-ray reports should not delay biopsy if a dominant or clinically suspicious mass is present. B. Four to eight percent of cancers are not identified by mammography. C. Adenosis and dense breast may obscure an underlying neoplasm. Electronically Signed By: Scooby Morales MD 09/19/16 [id number]
== END ==
LOC: M RAD 08:54
PROVIDERS: ATTEND Internal Medicine
DX: Z12.31 Encounter for screening mammogram for malignant neoplasm of breast (principal)

== ENCOUNTER → 2019-05-06 | Outpatient (CLI) | payer OTHER ==
--- NOTE | 2019-05-06 08:26 | REPMRS ---
Patient History The patient states she has not had a clinical breast exam in over a year. Family history of ovarian cancer at age 47 in mother. Digital Woman Screen Mammo: May 06, 2019 - Exam #: [id number] Bilateral CC and MLO view(s) were taken. Technologist: Nitza Bauman, Technologist Prior study comparison: September 19, 2016, bilateral digital mammo screening bilat, performed at [facility]. FINDINGS: There are scattered fibroglandular densities. There has been no change in the appearance of the mammogram from the prior studies. There is a mild amount of scattered fibroglandular density which is fairly symmetric. There is no interval development of dominant mass, architectural distortion, or grouped microcalcification suggestive of malignancy. 3-D tomosynthesis shows no additional findings. Assessment: BI-RADS/ACR category 1 mammogram. Negative Mammogram. Recommendation Routine screening mammogram of both breasts in 1 year (for women over age 40). This patient's Lifetime Breast Cancer Risk is estimated at 5.9 %. This mammogram was interpreted with the aid of an FDA-approved computer-aided dectection system. Electronically Signed By: Demarcus Gutierrez MD 05/06/19 0825
== END ==
LOC: M WHC 07:31
PROVIDERS: ATTEND Family Medicine
DX: Z12.31 Encounter for screening mammogram for malignant neoplasm of breast (principal); Z80.41 Family history of malignant neoplasm of ovary

== ENCOUNTER → 2021-11-08 | Outpatient (CLI) | payer OTHER | LOC: M WHC 08:54 | PROVIDERS: ATTEND Family Medicine | DX: Z12.31 Encounter for screening mammogram for malignant neoplasm of breast (principal); Z80.41 Family history of malignant neoplasm of ovary ==